=== PATIENT | female | born 2000 | race Caucasian/White ===

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

== ENCOUNTER 2021-06-11 16:35 | Outpatient (CLI) | payer MEDICAID | END 2021-06-11 23:59 | disposition home or self-care (01) | LOC: LAB.S 16:35 | PROVIDERS: ATTEND Nurse Practitioner | DX: B34.9 Viral infection, unspecified (principal); Z20.822 Contact with and (suspected) exposure to COVID-19 ==

== ENCOUNTER 2021-11-25 08:00 | Outpatient (CLI) | payer MEDICAID | END 2021-11-25 23:59 | LOC: LAB.S 08:00 | PROVIDERS: ATTEND Physician Assistant | DX: J34.89 Other specified disorders of nose and nasal sinuses (principal) | CPT/HCPCS: 87070; 87205 ==

== ENCOUNTER 2022-02-03 08:00 | Outpatient (CLI) | payer MEDICAID | END 2022-02-03 23:59 | disposition home or self-care (01) | LOC: LAB.S 08:00 | PROVIDERS: ATTEND Registered Nurse | DX: Z30.09 Encounter for other general counseling and advice on contraception (principal) | CPT/HCPCS: 87081 ==

== ENCOUNTER 2022-05-09 08:00 | Outpatient (CLI) | payer MEDICAID ==
[2022-05-09 20:32] LABS: BILIRUBIN,URINE NEGATIVE (NEGATIVE); GLUCOSE, URINE (UA) NEGATIVE (NEGATIVE); KETONES,URINE (UA) NEGATIVE (NEGATIVE); LEUKOCYTE ESTERASE, URINE NEGATIVE (NEGATIVE); NITRITE,URINE NEGATIVE (NEGATIVE); OCCULT BLOOD,URINE NEGATIVE (NEGATIVE); PH,URINE 7.5 PH (5.0-7.5); PROTEIN,URINE NEGATIVE (NEGATIVE); UROBILINOGEN,URINE 0.2 (NORMAL) E.U./dL (NORMAL)
[2022-05-09 20:44] LABS: BACTERIA,URINE None Seen /HPF (None Seen); CLARITY,URINE CLEAR (CLEAR); RBC,URINE 0-5 /HPF (0-5); SQUAMOUS EPITHELIAL CELL,UR NONE SEEN (<= Few); WBC,URINE 0-3 /HPF (0-5)
[2022-05-09 22:52] LABS: BACTERIAL VAGINOSIS DNA NEGATIVE (NEGATIVE); CANDIDA GLABRATA DNA NEGATIVE (NEGATIVE); CANDIDA GROUP DNA NEGATIVE (NEGATIVE); CANDIDA KRUSEI DNA NEGATIVE (NEGATIVE); TRICHOMONAS VAGINALIS DNA NEGATIVE (NEGATIVE)
[2022-05-09 23:44] LABS: CHLAMYDIA TRACHOMATIS DNA NEGATIVE (NEGATIVE); NEISSERIA GONORRHOEAE DNA NEGATIVE (NEGATIVE)
== END 2022-05-09 23:59 | disposition home or self-care (01) ==
LOC: LAB 08:00
PROVIDERS: ATTEND Emergency Medicine
DX: Z72.51 High risk heterosexual behavior (principal); J02.8 Acute pharyngitis due to other specified organisms
CPT/HCPCS: 81001; 81514; 81599; 87086; 87491; 87591; 87661

== ENCOUNTER 2022-05-23 08:00 | Outpatient (CLI) | payer MEDICAID ==
[2022-05-23 19:19] LABS: BACTERIAL VAGINOSIS DNA NEGATIVE (NEGATIVE); CANDIDA GLABRATA DNA NEGATIVE (NEGATIVE); CANDIDA GROUP DNA NEGATIVE (NEGATIVE); CANDIDA KRUSEI DNA NEGATIVE (NEGATIVE); TRICHOMONAS VAGINALIS DNA NEGATIVE (NEGATIVE)
== END 2022-05-23 23:59 | disposition home or self-care (01) ==
LOC: LAB 08:00
PROVIDERS: ATTEND Nurse Practitioner
DX: N89.8 Other specified noninflammatory disorders of vagina (principal)
CPT/HCPCS: 81514

== ENCOUNTER 2022-08-19 08:00 | Outpatient (CLI) | payer MEDICAID | END 2022-08-19 23:59 | disposition home or self-care (01) | LOC: LAB.S 08:00 | PROVIDERS: ATTEND Physician Assistant Medical | DX: Z20.2 Contact with and (suspected) exposure to infections with a predominantly sexual mode of transmission (principal) | CPT/HCPCS: 81599; 87491; 87591; 87661 ==

== ENCOUNTER 2022-08-19 11:35 | Outpatient (CLI) | payer MEDICAID ==
[2022-08-19 22:56] LABS: BACTERIAL VAGINOSIS DNA NEGATIVE (NEGATIVE); CANDIDA GLABRATA DNA NEGATIVE (NEGATIVE); CANDIDA GROUP DNA NEGATIVE (NEGATIVE); CANDIDA KRUSEI DNA NEGATIVE (NEGATIVE); TRICHOMONAS VAGINALIS DNA NEGATIVE (NEGATIVE)
[2022-08-19 23:48] LABS: CHLAMYDIA TRACHOMATIS DNA NEGATIVE (NEGATIVE); NEISSERIA GONORRHOEAE DNA NEGATIVE (NEGATIVE)
[2022-08-20 03:09] LABS: HCV AB <0.1 s/co ratio (0.0-0.9)
[2022-08-20 10:09] LABS: HIV SCREEN 4TH GENERATION Non Reactive (Non Reactive)
[2022-08-21 13:10] LABS: RPR Non Reactive (Non Reactive)
== END 2022-08-19 11:36 | disposition home or self-care (01) ==
LOC: LAB.S 11:35
PROVIDERS: ATTEND Physician Assistant Medical
DX: Z20.2 Contact with and (suspected) exposure to infections with a predominantly sexual mode of transmission (principal)
CPT/HCPCS: 36415; 81514; 86592; 86803; 87389; 87491; 87591; 87661

== ENCOUNTER 2024-05-18 08:00 | Outpatient (CLI) | payer MEDICAID, OTHER ==
--- NOTE | 2024-05-18 16:43 | XRAY Report ---
PROCEDURE: Lumbar Spine 2-3V INDICATIONS: LOW BACK PAIN TECHNIQUE: 3 views of the lumbar spine were acquired. COMPARISON: None. FINDINGS: Surgical change: None. Bones: 5 [id number] vertebrae are present. There is grade 1 anterolisthesis measuring 8 mm of L 5 on S1. Appearance of pars defect at L5 is present. No vertebral body compression fractures. Forami nal narrowing is most prominent at L5-S1. No suspicious bony lesions. Soft tissues: Overlying bowel gas pattern is normal. No suspicious soft tissue calcifications. IMPRESSION: Grade 1 anterolisthesis of L5 on S1 with pars defect. Reviewed by: Maine Mazariegos MD on 05/18/2024 4:41 PM PDT Approved by: Maine Mazariegos MD on 05/18/2024 4:41 PM PDT Station ID: [id number]
== END 2024-05-18 23:59 | disposition home or self-care (01) ==
LOC: DI.S 08:00
PROVIDERS: ATTEND Registered Nurse
DX: M43.06 Spondylolysis, lumbar region (principal)